=== PATIENT | female | born 1985 | race Caucasian/White ===

== ENCOUNTER 2017-02-13 11:54 | Emergency (ER) | payer SELFPAY ==
[~2017-02-13] VITALS: Ht 160 cm; Wt 89.0 kg
[2017-02-13 12:39] LABS: BASOPHILS # (AUTO) 0.03 K/uL (0.00-0.20); BASOPHILS % (AUTO) 0.4 % (0.0-2.0); EOSINOPHILS # (AUTO) 0.02 K/uL (0.00-0.70); EOSINOPHILS % (AUTO) 0.27 % (1.0-6.0); HEMATOCRIT 36.4 % (36-46); HEMOGLOBIN 12.4 g/dL (12.0-16.0); LYMPHOCYTES # (AUTO) 1.3 K/uL (1.0-4.8); LYMPHOCYTES % (AUTO) 16.4 % (22.0-44.0); MEAN CORPUSCULAR HEMOGLOBIN 31.1 pg (26.0-34.0); MEAN CORPUSCULAR HGB CONC 34.1 G/dL (31.0-37.0); MEAN CORPUSCULAR VOLUME 91 fL (80-100); MONOCYTES # (AUTO) 0.6 K/uL (0.1-1.0); MONOCYTES % (AUTO) 7.1 % (2.0-9.0); NEUTROPHILS % (AUTO) 75.9 % (40.0-70.0); PLATELET COUNT (AUTO) 248 K/uL (150-450); RED BLOOD CELL COUNT(AUTO) 3.99 MIL/uL (4.00-5.20); RED CELL DISTRIBUTION WIDTH 12.8 % (11.5-14.5); WHITE BLOOD COUNT (AUTO) 7.9 K/uL (4.5-11.0)
[2017-02-13 12:52] LABS: ANION GAP 10 mmol/L (8-16); CARBON DIOXIDE 25 mmol/L (22-29); CHLORIDE 101 mmol/L (98-107); GLOMERULAR FILTR. RATE CALC > 60 mL/min (>60); POTASSIUM 3.6 mmol/L (3.5-5.1); SODIUM SERUM 136 mmol/L (136-145); UREA NITROGEN, BLOOD 13 mg/dL (7-18)
[2017-02-13 12:57] LABS: ALANINE AMINOTRANSFERASE 25 U/L (12-78); ALBUMIN 3.7 g/dL (3.4-5.0); ASPARTATE AMINOTRANSFERASE 14 U/L (15-37); BILIRUBIN,TOTAL 0.6 mg/dL (0.1-1.0); TOTAL PROTEIN, SERUM 8.6 g/dL (6.4-8.2)
[2017-02-13] MEDS ORDERED: SODIUM CHLORIDE 0.9% 1,000 ML IV ONE (15:15)
[2017-02-13] MEDS ORDERED: ONDANSETRON HCL 4 MG/2 ML VIAL IVP ONE (15:15)
[2017-02-13] MEDS ORDERED: MORPHINE SULFATE 4 MG/ML SYRINGE IVP ONE (15:15)
[2017-02-13] MEDS ORDERED: ACETAMINOPHEN 500 MG TABLET PO ONE (15:30)
[2017-02-13 15:38] LABS: APPEARANCE,URINE CLOUDY (CLEAR); GLUCOSE, URINE (UA) NEGATIVE (NEGATIVE); KETONES,URINE 40 mg/dL (NEGATIVE); LEUKOCYTE ESTERASE ,URINE LARGE (NEGATIVE); OCCULT BLOOD,URINE SMALL (NEGATIVE); PH,URINE 6.5 (5.0-8.0); PROTEIN,URINE POS 1+ (NEGATIVE)
[2017-02-13 15:53] LABS: ADD UA MICROSCOPIC YES
[2017-02-13 15:54] LABS: SQUAMOUS EPITHELIAL CELL,UR Moderate /LPF (None Seen); WBC,URINE >100 /HPF (0-5)
[2017-02-13] MEDS ORDERED: CefTRIAXone 1 GM/DEXTROSE 50 ML IV ONE (16:30)
[2017-02-13] MEDS ORDERED: GENTAMICIN 80 MG/NACL ISO-OSM 50 ML IV ONE (16:30)
[2017-02-13 19:14] VITALS: BP 115/69
== END 2017-02-13 19:14 | disposition home or self-care (01) ==
LOC: EMS 11:56
DX: N12 Tubulo-interstitial nephritis, not specified as acute or chronic (principal); N20.0 Calculus of kidney; R50.9 Fever, unspecified; Z90.710 Acquired absence of both cervix and uterus
CPT/HCPCS: 36415; 74176; 80053; 81001; 84703; 85025; 87077; 87086; 87186; 96361; 96365; 96375; 99285; J0696; J1580; J2270; J2405; J7030

== ENCOUNTER 2019-09-12 03:20 | Emergency (ER) | payer SELFPAY ==
[~2019-09-12] VITALS: Ht 162.6 cm; Wt 86.4 kg
[2019-09-12] MEDS ORDERED: KETOROLAC TROMETHAMINE 30 MG/ML VIAL IVP ONE ×2 (03:45→05:45)
[2019-09-12 04:08] LABS: BASOPHILS % (AUTO) 0.3 % (0.0-2.0); EOSINOPHILS % (AUTO) 0.9 % (1.0-6.0); HEMATOCRIT 40.2 % (36-46); HEMOGLOBIN 13.9 g/dL (12.0-16.0); LYMPHOCYTES # (AUTO) 1.9 K/uL (1.0-4.8); LYMPHOCYTES % (AUTO) 35.2 % (22.0-44.0); MEAN CORPUSCULAR HEMOGLOBIN 31.2 pg (26.0-34.0); MEAN CORPUSCULAR HGB CONC 34.6 G/dL (31.0-37.0); MEAN CORPUSCULAR VOLUME 90 fL (80-100); MONOCYTES # (AUTO) 0.4 K/uL (0.1-1.0); MONOCYTES % (AUTO) 7.3 % (2.0-9.0); NEUTROPHILS # (AUTO) 3.1 K/uL (1.8-7.7); NEUTROPHILS % (AUTO) 56.3 % (40.0-70.0); PLATELET COUNT (AUTO) 295 K/uL (150-450); RED BLOOD CELL COUNT(AUTO) 4.46 MIL/uL (4.00-5.20); RED CELL DISTRIBUTION WIDTH 12.6 % (11.5-14.5)
[2019-09-12] MEDS ORDERED: ONDANSETRON HCL 4 MG/2 ML VIAL IVP ONE (04:15)
[2019-09-12 04:18] LABS: ANION GAP 15 mmol/L (8-16); CARBON DIOXIDE 23 mmol/L (22-29); CHLORIDE 100 mmol/L (98-107); CREATININE 0.97 mg/dL (0.60-1.30); GLUCOSE,RANDOM 134 mg/dL (70-110); POTASSIUM 3.3 mmol/L (3.5-5.1); SODIUM SERUM 138 mmol/L (136-145); UREA NITROGEN, BLOOD 21 mg/dL (7-18)
[2019-09-12 04:19] LABS: CALCIUM, TOTAL 9.3 mg/dL (8.8-10.5); GLOMERULAR FILTR. RATE CALC > 60 mL/min (>60)
[2019-09-12 04:20] LABS: APPEARANCE,URINE CLOUDY (CLEAR); BILIRUBIN,URINE NEGATIVE (NEGATIVE); GLUCOSE, URINE (UA) NEGATIVE (NEGATIVE); KETONES,URINE TRACE mg/dL (NEGATIVE); LEUKOCYTE ESTERASE ,URINE LARGE (NEGATIVE); NITRATE,URINE POSITIVE (NEGATIVE); OCCULT BLOOD,URINE MODERATE (NEGATIVE); PH,URINE 6.5 (5.0-8.0); PROTEIN,URINE POS 1+ (NEGATIVE); UROBILINOGEN,URINE 0.2 mg/dL (<=1.0)
[2019-09-12 04:25] LABS: AMPHET/METH SCREEN,URINE NEGATIVE (NEGATIVE); BARBITURATE SCREEN, URINE NEGATIVE (NEGATIVE); BENZODIAZEPINES SCREEN,URINE NEGATIVE (NEGATIVE); CANNABINOID SCREEN,URINE NEGATIVE (NEGATIVE); COCAINE SCREEN,URINE NEGATIVE (NEGATIVE); METHADONE SCREEN, URINE NEGATIVE (NEGATIVE); OPIATE SCREEN,URINE NEGATIVE (NEGATIVE)
[2019-09-12 04:31] LABS: ALANINE AMINOTRANSFERASE 24 U/L (12-78); ALBUMIN 4.4 g/dL (3.4-5.0); ALKALINE PHOSPHATASE 93 U/L (46-116); ASPARTATE AMINOTRANSFERASE 19 U/L (15-37); BILIRUBIN,TOTAL 0.3 mg/dL (0.1-1.0); HCG,QUANTITATIVE < 1 mIU/mL (0-6); LIPASE 145 U/L (73-393); TOTAL PROTEIN, SERUM 9.1 g/dL (6.4-8.2)
[2019-09-12 04:33] LABS: PHENCYCLIDINE SCREEN,URINE NEGATIVE (NEGATIVE)
[2019-09-12 04:38] LABS: BACTERIA,URINE Many /HPF (None Seen); SQUAMOUS EPITHELIAL CELL,UR Few /LPF (None Seen); WBC,URINE Full Field /HPF (0-5); YEAST,URINE None Seen /HPF (None Seen)
[2019-09-12 05:35] VITALS: BP 151/96
== END 2019-09-12 06:05 | disposition home or self-care (01) ==
LOC: EMS 03:20
DX: N39.0 Urinary tract infection, site not specified (principal); N20.0 Calculus of kidney; N83.201 Unspecified ovarian cyst, right side; K80.20 Calculus of gallbladder without cholecystitis without obstruction; F41.9 Anxiety disorder, unspecified
CPT/HCPCS: 36415; 71045; 74176; 76705; 80053; 80307; 81001; 83690; 84484; 84702; 85025; 87077; 87086; 93005; 96374; 96375; 96376; 99285; G0480; J1885; J2405